=== PATIENT | female | born 1975 | race Caucasian/White ===

== ENCOUNTER 2020-10-20 11:44 | Emergency (ER) | payer OTHER ==
[~2020-10-20] VITALS: Ht 160 cm; Wt 74.4 kg
[2020-10-20 11:52] VITALS: BP 108/64
--- NOTE | 2020-10-20 12:00 | NUR ---
ABULATORY TO CHAIR WITH REPORT OF HEAVY VAGINAL BLEEDING WITH LARGE CLOTS AND LOWER ABDOMINAL PAIN[place] [facility] [place]. HAD A SHORTER THAN USUAL DURATION OF MENSTRUAL PERIOD IN SEPTEMBER. LASTED ONLY 2 DAYS COMPARED TO THE USUAL 5. NO REPORT OF FEVERM NAUSEA, VOMITING OR DIARRHEA. NO PRIOR HISTORY OF SAME./A0/L3.
--- NOTE | 2020-10-20 12:00 | NUR ---
PT PLACED IN CHAIR A.
[2020-10-20 12:14] LABS: BASOPHILS # (AUTO) 0.1 K/uL (0.00-0.22); BASOPHILS % (AUTO) 0.8 % (0.0-2.0); EOSINOPHILS # (AUTO) 0.2 K/uL (0-0.4); EOSINOPHILS % (AUTO) 3.4 % (0.0-4.0); HEMATOCRIT 27.8 % (36-48); HEMOGLOBIN 8.5 g/dL (12.0-16.0); LYMPHOCYTES # (AUTO) 2.3 K/uL (2.5-16.5); LYMPHOCYTES % (AUTO) 32.8 % (20.5-51.1); MEAN CORPUSCULAR HEMOGLOBIN 22 pg (27-31); MEAN CORPUSCULAR HGB CONC 31 g/dL (33-37); MEAN CORPUSCULAR VOLUME 72.3 fL (80-94); MONOCYTES # (AUTO) 0.5 K/uL (0.8-1.0); MONOCYTES % (AUTO) 7.6 % (1.7-9.3); NEUTROPHILS # (AUTO) 3.9 K/uL (1.8-7.7); NEUTROPHILS % (AUTO) 55.4 % (42.2-75.2); PLATELET COUNT (AUTO) 324 K/uL (140-450); RED BLOOD CELL COUNT(AUTO) 3.85 MIL/uL (4.20-5.40); RED CELL DISTRIBUTION WIDTH 17.8 % (11.6-13.7); WHITE BLOOD COUNT (AUTO) 7.1 K/uL (4.8-10.8)
[2020-10-20 12:19] LABS: APPEARANCE,URINE CLEAR (CLEAR); BILIRUBIN,URINE NEGATIVE (NEGATIVE); COLOR,URINE YELLOW (YELLOW); LEUKOCYTE ESTERASE ,URINE NEGATIVE (NEGATIVE); NITRITE, URINE NEGATIVE (NEGATIVE); PH,URINE 5.5 (5.0-9.0); UGLUCOSE NEGATIVE (NEGATIVE)
--- NOTE | 2020-10-20 12:30 | NUR ---
TO AND FROM US,
[2020-10-20 12:32] LABS: BLOOD, URINE 1+ (NEGATIVE); RBC,URINE 0-5 /HPF (0-5); WBC,URINE 0-5 /HPF (0-5)
--- NOTE | 2020-10-20 14:22 | NUR ---
DISCHARGE INSTRUCTIONS GIVEN WITH VERBALIZATION OF UNDERSTANDING. LEFT ED IN NO ACUTE DISTRESS.
== END 2020-10-20 14:22 | disposition home or self-care (01) ==
LOC: MED 11:44
DX: D25.9 Leiomyoma of uterus, unspecified (principal); D64.9 Anemia, unspecified
CPT/HCPCS: 36415; 76856; 81001; 81025; 84702; 85025; 86900; 86901; 99284